=== PATIENT | male | born 1940 ===

== ENCOUNTER 2023-04-19 12:02 | Outpatient (NON) | payer MEDICARE, SELFPAY | END 2023-04-19 12:03 | disposition home or self-care (01) | PROVIDERS: Visit Provider Nurse Practitioner | DX: C43.39 Malignant melanoma of other parts of face (principal) | CPT/HCPCS: 88305 ==

== ENCOUNTER 2023-04-24 12:31 | Outpatient (NON) | payer MEDICARE, SELFPAY | END 2023-04-24 12:32 | disposition home or self-care (01) | LOC: ANHLAB 12:31 | PROVIDERS: Visit Provider Nurse Practitioner | DX: C44.619 Basal cell carcinoma of skin of left upper limb, including shoulder (principal) | CPT/HCPCS: 88305; 88331 ==